=== PATIENT | male | born 1975 | race Caucasian/White ===

== ENCOUNTER 2021-06-14 03:20 | Emergency (ER) | payer SELFPAY ==
[2021-06-14] VITALS (17 sets, daily range): BP systolic 128–154; BP diastolic 89–100; PULSE 84–95; RESP 16–23; TEMP 36.6–36.7; O2SAT 96–100
--- NOTE | ~2021-06-14 | CT_ITS ---
EXAMINATION: CT soft tissue neck w con EXAM DATE: 06/14/2021 05:23 INDICATION: Throat swelling. TECHNIQUE: Spiral CT of the neck was performed following intravenous injection of 75 mL Omnipaque 350 . Axial, coronal and sagittal images were reviewed. The dose-length product (DLP) for this examinat ion was 557.80 mGy-cm. The exposure was tailored according to patient size (auto mA exposure control ), and iterative reconstruction (ASIR) was used as additional dose reduction technique. There is no prior study for comparison. FINDINGS: Pathologically enlarged left internal jugular chain, left submandibular lymphadenopathy. On e of the larger lymph nodes measures 2.1 x 1.5 cm, another 3.0 x 1.6 cm. No right-sided lymphadenopat hy. Could be lymphoma or other malignancy; histologic correlation is indicated. The thyroid gland is unremarkable. The submandibular and parotid glands are symmetric. The superior mediastinum is u nremarkable. The airway is unremarkable. Parapharyngeal and pre-glottic fat planes are preserved. The opacified vasculature is patent. The orbits are unremarkable. Mild ethmoid and bilateral m axillary sinus mucoperiosteal thickening. Lung apices clear. There is mild cervical spondylosis. IMPRESSION: Left-sided neck lymphadenopathy suspicious for lymphoma or other malignancy; histologic c orrelation indicated. Reviewed, dictated and finalized at location A. IMPRESSION: Left-sided neck lymphadenopathy suspicious for lymphoma or other ma lignancy; histologic correlation indicated.
[2021-06-14] MEDS: FAMOTIDINE 20 MG/2 ML VIAL IV PUSH (04:19)
[2021-06-14] MEDS: methylPREDNISolone SOD SUCC 125 MG VIAL IV PUSH (04:20)
[2021-06-14 04:28] LABS: Basophils Absolute Auto 0.1 K/mm3 (0.0-0.1); Basophils Percent Auto 0.8 % (0.2-1.2); Eosinophils Absolute Auto 0.2 K/mm3 (0-0.3); Eosinophils Percent Auto 2.8 % (0-4.4); Hematocrit 42.2 % (42.0-52.0); Hemoglobin 14.4 g/dL (14.0-18.0); Immature Granulocyte Absolute 0.02 K/mm3 (0.00-0.031); Immature Granulocyte Percent A 0.3 % (0-0.5); Lymphocytes Percent Auto 25.2 % (18.3-44.2); Mean Corpuscular HGB Conc 34.1 g/dl (32-36); Mean Corpuscular Hemoglobin 31.6 pg (26-34); Mean Corpuscular Volume 92.7 fl (80-100); Mean Platelet Volume 8.6 fl (7.4-10.4); Monocytes Absolute Auto 0.8 K/mm3 (0.1-0.6); Monocytes Percent Auto 11.5 % (2.6-8.5); Neutrophils Absolute Auto 4.2 K/mm3 (1.3-6.7); Neutrophils Percent Auto 59.4 % (45.5-73.1); Platelet Count Result 224 k/mm3 (150-375); Red Blood Count 4.55 M/mm3 (4.6-6.20); Red Cell Distribution Width 12.2 % (11.5-14.5); White Blood Count 7.1 K/mm3 (4.5-10.0)
[2021-06-14 04:40] LABS: Alanine Aminotransferase 83 U/L (4-50); Albumin Level 4.6 g/dL (3.5-5.1); Alkaline Phosphatase 107 U/L (38-126); Anion Gap 14 mmol/L (8-16); Aspartate Amino Transferase 70 U/L (17-59); Bilirubin,Total 0.7 mg/dL (0.2-1.3); Blood Urea Nitrogen 9 mg/dL (9-20); Calcium 9.2 mg/dL (8.4-10.2); Carbon Dioxide 23 mmol/L (22-30); Chloride 99 mmol/L (98-107); Estimated CRCL calculation 91 ml/min; Estimated Glomerular Filt Rate > 60; Glucose 101 mg/dL (65-110); Potassium 3.5 mmol/L (3.4-5.0); Sodium 136 mmol/L (137-145)
--- NOTE | 2021-06-14 05:03 | ED.GENADULT ---
HPI - General Adult General Chief complaint: Unspecified Stated complaint: throat closing up, anxiety Time Seen by Provider: 06/14/21 03:43 History of Present Illness HPI narrative: Patient 45-year-old gentleman who presents the emergency department chief complaint of a full feeling in his throat. Patient reports he has history of allergies and reports that he had a sensation feeling as though his throat was closing. Patient states he took some Benadryl which is improved somewhat the patient denies hives denies urticaria patient states that he is not had any stridor the patient also reports has been under a fair amount of stress has a family member that is upstairs in the ICU. Related Data Allergies Allergy/AdvReac Type Severity Reaction Status Date / Time No Known Allergies Allergy Verified 06/14/21 03:29 Review of Systems Review of Systems: A 10 system review of systems was completed on the patient and is negative except for what is stated in the HPI. Nursing and ancillary documentation was reviewed. Exam Narrative: GENERAL: Well-appearing, well-nourished, and in no acute distress. HEAD: Normocephalic, atraumatic. EYES: PERRLA and EOMI. ENT: Nares clear, no rhinorrhea or epistaxis. Mucous membranes moist. NECK: Supple. CHEST: Clear to auscultation. No respiratory distress. HEART: Regular rate and rhythm. No murmur heard. Normal peripheral pulses. ABDOMEN: Soft, nontender, nondistended, normal active bowel sounds. EXTREMITIES: Normal range of motion. No edema. SKIN: Warm, dry, no rash. NEURO: No focal deficits. Alert and oriented x3. PSYCH: Normal mood and affect. Course Vital Signs Vital signs: Vital Signs Temperature 36.6 C 06/14/21 03:25 Pulse Rate 95 06/14/21 03:25 Respiratory Rate 20 06/14/21 03:25 Blood Pressure 154/100 H 06/14/21 03:25 Pulse Oximetry 100 06/14/21 03:25 Temperature 36.7 C 06/14/21 07:00 Pulse Rate 89 06/14/21 07:00 Respiratory Rate 17 06/14/21 07:00 Blood Pressure 139/89 06/14/21 06:15 Pulse Oximetry 96 06/14/21 07:00 Medical Decision Making Vital Signs Vital Signs: Vital Signs Temperature 36.6 C 06/14/21 03:25 Pulse Rate 95 06/14/21 03:25 Respiratory Rate 20 06/14/21 03:25 Blood Pressure 154/100 H 06/14/21 03:25 Pulse Oximetry 100 06/14/21 03:25 Temperature 36.7 C 06/14/21 07:00 Pulse Rate 89 06/14/21 07:00 Respiratory Rate 17 06/14/21 07:00 Blood Pressure 139/89 06/14/21 06:15 Pulse Oximetry 96 06/14/21 07:00 Lab Data Result diagrams: 06/14/21 04:18 06/14/21 04:18 Labs: Lab Results 06/14/21 06/14/21 Range/Units 04:18 04:18 WBC 7.1 (4.5-10.0) K/mm3 RBC 4.55 L (4.6-6.20) M/mm3 Hgb 14.4 (14.0-18.0) g/dL Hct 42.2 (42.0-52.0) % MCV 92.7 (80-100) fl MCH 31.6 (26-34) pg MCHC 34.1 (32-36) g/dl RDW 12.2 (11.5-14.5) % Plt Count 224 (150-375) k/mm3 MPV 8.6 (7.4-10.4) fl Immature Gran % (Auto) 0.3 (0-0.5) % Neut % (Auto) 59.4 (45.5-73.1) % Lymph % (Auto) 25.2 (18.3-44.2) % Sheridan % (Auto) 11.5 H (2.6-8.5) % Eos % (Auto) 2.8 (0-4.4) % Baso % (Auto) 0.8 (0.2-1.2) % Lymph # (Auto) 1.80 (0.9-3.2) K/mm3 Sheridan # (Auto) 0.8 H (0.1-0.6) K/mm3 Eos # (Auto) 0.2 (0-0.3) K/mm3 Baso # (Auto) 0.1 (0.0-0.1) K/mm3 Abs Immat Gran (auto) 0.02 (0.00-0.031) K/mm3 Absolute Neuts (auto) 4.2 (1.3-6.7) K/mm3 Absolute Nucleated RBC 0.0 (0.0-0.012) K/mm3 Nucleated RBC % 0.0 (0.0-0.2) % Sodium 136 L (137-145) mmol/L Potassium 3.5 (3.4-5.0) mmol/L Chloride 99 (98-107) mmol/L Carbon Dioxide 23 (22-30) mmol/L Anion Gap 14 (8-16) mmol/L BUN 9 (9-20) mg/dL Creatinine 0.90 (0.7-1.3) mg/dL Estim Creat Clear Calc 91 ml/min Estimated GFR > 60 (59 - ) Glucose 101 (65-110) mg/dL Calcium 9.2 (8.4-10.2) mg/dL Total Bilirubin 0.7 (0.2-1.3) mg/dL AST 70 H (17-59) U
== END 2021-06-14 07:37 | disposition home or self-care (01) ==
PROVIDERS: Emergency Provider Emergency Medicine
DX: R59.0 Localized enlarged lymph nodes (principal)
CPT/HCPCS: 36415; 70491; 80053; 85025; 96374; 96375; 99284; J2930; Q9967

== ENCOUNTER 2021-08-31 13:11 | Outpatient (CLI) | payer SELFPAY ==
--- NOTE | ~2021-08-31 | US_ITS ---
EXAMINATION: US biopsy lymph node DATE: 08/31/2021 16:01 INDICATION: Left cervical lymphadenopathy TECHNIQUE: The procedure including the risks and benefits was discussed with the patient. Risks discu ssed included bleeding and infection. The patient understood the risks and agreed to proceed. The sk in overlying the inframandibular left neck was prepped and draped in usual sterile fashion. Anesthet ic was administered with 1% lidocaine subcutaneously. An 14 gauge core biopsy needle was advanced un katharina continuous ultrasound observation to the lesion of interest. 5 core biopsy specimens were obtain ed, 3 placed in RPMI media and 2 in formalin. The needle was removed and the entry site was cleaned and dressed. Post procedure ultrasound demonstrated no hemorrhage. FINDINGS: Ultrasound images demonstrate biopsy needle advanced into a 3.6 x 3.2 x 2.0 cm enlarged odm y hypoechoic left submandibular lymph node. IMPRESSION: 1. Successful Ultrasound-guided biopsy of a a 3.6 x 3.2 x 2.0 cm left submandibular lymph node. Reviewed, dictated and finalized at location A. ALLY IMPAIRED TEACHER IMPRESSION: 1. Successful Ultrasound-guided biopsy of a a 3.6 x 3.2 x 2.0 cm left submandib ular lymph node.
== END 2021-08-31 13:12 | disposition home or self-care (01) ==
LOC: ANHIMG 13:28
PROVIDERS: Visit Provider Otolaryngology
DX: R59.0 Localized enlarged lymph nodes (principal); C81.01 Nodular lymphocyte predominant Hodgkin lymphoma, lymph nodes of head, face, and neck
CPT/HCPCS: 38505; 76942; 88184; 88185; 88305

== ENCOUNTER 2021-10-08 07:43 | Outpatient (CLI) | payer BC, SELFPAY ==
--- NOTE | ~2021-10-08 | PE_ITS ---
EXAMINATION: PET skull to mid thigh DATE: 10/08/2021 09:25 INDICATION: Hodgkin's lymphoma TECHNIQUE: Blood glucose level was 100 mg/dL. 10.427 mCi of 18-fluorodeoxyglucose (18-FDG) was admini stered i.v. Low dose computed tomography (CT) images were acquired from the base of the brain to the proximal thighs for attenuation correction and anatomic localization. Positron emission tomography (P ET) images were acquired in the same distribution beginning 60 minutes after injection. Images includ ing fused PET/CT images were reconstructed in axial, coronal, and sagittal planes. Automated exposure control technique was employed. The dose-length product was 945.60mGy-cm. COMPARISON: None FINDINGS: Head/neck: Moderate to high increased FDG uptake associated with several enlarged left submandibular, jugular an d posterior triangle cervical lymph nodes. The most intense FDG uptake with maximal SUV of 12.1 is se en at a jugular chain lymph node measuring 1.8 x 1.9 cm in diameter at the level of the hyoid bone in one of the largest lymph nodes in the submandibular region measuring 2.9 x 1.5 cm with maximal SUV o f 6.4. The FDG avid lymph nodes all remain above the level of the cricoid cartilage. Symmetric increa sed activity in the oral cavity, palatine tonsils, parotid glands, submandibular glands, laryngeal m uscles and ocular muscles without CT correlate, likely physiologic. Chest: Mild bibasilar atelectasis. No suspicious pulmonary nodules, pneumonia, pulmonary edema or pleural ef fusion. Calcified right hilar and mediastinal lymph nodes consistent with old granulomatous disease. Heart size is normal. No pericardial or pleural effusion. No pathologically enlarged or FDG avid thor acic lymph nodes. Abdomen/pelvis/proximal thighs: Physiologic renal accumulation and excretion of FDG activity in the kidneys, bladder and along portio ns of ureters. There is diffuse relatively smooth bladder wall thickening which could be due to chron ic outlet obstruction, neurogenic bladder or cystitis either acute or chronic. Normal degree and hete rogenous pattern of increased uptake throughout the liver without radiologic correlate or dominant FD G avid lesion. The gallbladder, pancreas, spleen and bilateral adrenal glands are normal. Mild uptake scattered throughout the bowels without radiologic correlate, also likely physiologic. Normal append ix. There are several mildly enlarged periportal, portacaval and gastrohepatic lymph nodes with mild to moderately increased FDG uptake. For reference a 1.9 x 1.9 cm lymph node cephalad to the celiac ax is demonstrates a maximal SUV of 4.9. There is a larger portacaval lymph node with maximal SUV of 5.1 0 which is unable to be clearly distinguished from the adjacent vasculature to allow for accurate freya surement on noncontrast imaging. Still normal-sized but mildly prominent 1.5 x 0.8 cm aortocaval lymp h node just below the level of the renal artery and vein and with FDG uptake with maximal SUV of 3.0 isointense to the adjacent aorta and inferior vena cava. No more caudal pathologically enlarged for a bnormal FDG avid lymph nodes in the lower abdomen or pelvis. Musculoskeletal: Small focus of likely extravasated activity at the site of injection of the right antecubital fossa. No suspicious lytic, blastic or FDG avid bone lesions. IMPRESSION: 1. Enlarged and FDG avid lymphadenopathy both at the left neck and in the upper abdomen as detailed a manoj consistent with given history of Hodgkin's lymphoma. Reviewed, dictated and finalized at location B. ETING ADMINISTRATIVE ASSISTANT IMPRESSION: 1. Enlarged and FDG avid lymphadenopathy both at the left neck and in the upper abdomen as detailed above consistent with given history of Hodgkin's lymphoma.
[2021-10-08 08:01] LABS: Glucose Point of Care 100 mg/dl (65-105)
== END 2021-10-08 07:44 | disposition home or self-care (01) ==
LOC: ANHIMG 07:48
PROVIDERS: Visit Provider Internal Medicine Hematology & Oncology
DX: C81.90 Hodgkin lymphoma, unspecified, unspecified site (principal); R59.0 Localized enlarged lymph nodes
CPT/HCPCS: 78815; A9552

== ENCOUNTER 2021-10-19 06:57 | Outpatient (CLI) | payer BC, SELFPAY ==
--- NOTE | 2021-10-19 | ECHO_ITS ---
Patient Info Name: Madan Wood Age: 45 years : 1975 Gender: Male Ht: 67 in Wt: 190 lbs BSA: 2.04 m2 HR: 79 bpm BP: 145 / 89 mmHg Heart Rhythm: Sinus Rhythm Technical Quality: Good Exam Date: 10/19/2021 8:03 AM Exam Location: 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 Strain analysis performed. Summary 1. Complete two-dimensional, color flow and Doppler transthoracic echocardiogram is performed. 2. Strain analysis performed. 3. Left ventricular chamber dimension is normal. 4. Left ventricular systolic function is normal, estimated at 55-60%. 5. There is no increased left ventricular wall thickness. 6. The left ventricular diastolic function is normal. 7. Global longitudinal strain is borderline at -17 %. 8. There is mild tricuspid valve regurgitation. Left Ventricle Left ventricular chamber dimension is normal. Left ventricular systolic function is normal, estimated at 55-60%. There is no increased left ventricular wall thickness. The left ventricular diastolic function is normal. Global longitudinal strain is borderline at -17 %. Right Ventricle Right ventricular chamber dimension is normal. Right ventricular systolic function is normal. Left Atria Left atrial chamber dimension is normal. Right Atria Right atrial chamber dimension is normal. Atrial Septum Intact interatrial septum visualized by color flow imaging. Aortic Valve The aortic valve is trileaflet. There is no aortic valve sclerosis. There is no aortic valve stenosis. There is trace aortic valve regurgitation. Pulmonic Valve The pulmonic valve is normal. There is no pulmonic valve stenosis. There is trace pulmonic regurgitation. Mitral Valve The mitral valve has normal leaflets. There is no mitral valve stenosis. There is trace mitral valve regurgitation. Tricuspid Valve The tricuspid valve leaflets are normal. There is no significant tricuspid valve stenosis. There is mild tricuspid valve regurgitation. No pulmonary hypertension, estimated pulmonary arterial systolic pressure is 32 mmHg. Pericardium/Pleural The pericardium appears normal. There is no pericardial effusion. Inferior Vena Cava Normal inferior vena cava with <50% collapse upon inspiration consistent with elevated right atrial pressure, 10 mmHg. Aorta The aortic root size at the sinus of Valsalva is normal. The prox ascending aorta size is normal. The abdominal aorta size is normal. Left Ventricular Outflow Tract Name Value Normal LVOT 2D LVOT Diameter 2.0 cm LVOT Doppler LVOT Peak Gradient 5 mmHg LVOT Mean Gradient 3 mmHg LVOT VT
== END 2021-10-19 06:58 | disposition home or self-care (01) ==
PROVIDERS: Visit Provider Internal Medicine Hematology & Oncology
DX: C81.03 Nodular lymphocyte predominant Hodgkin lymphoma, intra-abdominal lymph nodes (principal); I07.1 Rheumatic tricuspid insufficiency
CPT/HCPCS: 93306

== ENCOUNTER 2022-03-16 09:21 | Outpatient (CLI) | payer BC, SELFPAY ==
--- NOTE | ~2022-03-16 | PE_ITS ---
EXAMINATION: PET skull to mid thigh DATE: 03/16/2022 10:59 INDICATION: Hodgkin's lymphoma of intra-abdominal lymph node. TECHNIQUE: Blood glucose level was 115 mg/dL. 10.252 mCi of 18-fluorodeoxyglucose (18-FDG) was admini stered i.v. Low dose computed tomography (CT) images were acquired from the base of the brain to the proximal thighs for attenuation correction and anatomic localization. Automated exposure control was employed. Dose-length product (DLP) was 690 mGy-cm. Positron emission tomography (PET) images were ac quired in the same distribution. COMPARISON: PET/CT 10/08/2021, neck CT 06/14/2021 FINDINGS: Head/neck: There is increased activity in the oral cavity, pharynx, and glottis without abnormal CT c orrelate, likely physiologic. There is a 10 x 24 mm left submandibular lymph node without increased a ctivity. Chest: There is mild atelectasis in the lungs. Calcified right hilar lymph nodes are consistent with old granulomatous disease. No pleural effusion. The heart size is normal. No pericardial effusion. Th ere are coronary artery calcifications. Abdomen/pelvis/proximal thighs: The liver, gallbladder, spleen, pancreas, adrenal glands, and kidneys are normal. There are no dilated loops of bowel. There is an 11 x 16 mm periportal lymph node withou t increased activity. There is no free intraperitoneal fluid. There is widespread increased activity in bone marrow without abnormal CT correlate, likely bone marrow stimulation. There are chronic bilat eral L5 pars defects. IMPRESSION: 1. Improved borderline enlarged left submandibular lymph node without increased activity, consistent with treated lymphoma. 2. Stable mildly enlarged periportal lymph node without increased activity, likely reactive. Reviewed, dictated and finalized at location B. IMPRESSION: 1. Improved borderline enlarged left submandibular lymph node without increased activity, consistent with treated lymphoma. 2. Stable mildly enlarged periportal lymph node without increased activity, lik renato reactive.
[2022-03-16 09:44] LABS: Glucose Point of Care 115 mg/dl (65-105)
== END 2022-03-16 09:22 | disposition home or self-care (01) ==
PROVIDERS: Visit Provider Internal Medicine Hematology & Oncology
DX: C81.03 Nodular lymphocyte predominant Hodgkin lymphoma, intra-abdominal lymph nodes (principal)
CPT/HCPCS: 78815; A9552

== ENCOUNTER 2022-09-02 07:37 | Outpatient (CLI) | payer BC, SELFPAY ==
--- NOTE | ~2022-09-02 | PE_ITS ---
EXAMINATION: PET skull to mid thigh DATE: 09/02/2022 09:26 INDICATION: Nodular lymphocyte predominant Hodgkin lymphoma. TECHNIQUE: Blood glucose level was 105 mg/dL. 10.619 mCi of 18-fluorodeoxyglucose (18-FDG) was admini stered i.v. Low dose computed tomography (CT) images were acquired from the base of the brain to the proximal thighs for attenuation correction and anatomic localization. Automated exposure control was employed. Dose-length product (DLP) was 645 mGy-cm. Positron emission tomography (PET) images were ac quired in the same distribution. COMPARISON: PET/CT 03/16/2022 FINDINGS: Head/neck: There is increased activity in the oral cavity, oropharynx, major salivary glands, and romeo ttis without abnormal CT correlate, likely physiologic. There is a 10 x 21 mm left submandibular node without increased activity. Chest: There is no pneumonia or pleural effusion. Calcified right hilar and mediastinal lymph nodes a re consistent with old granulomatous disease. The heart size is normal. No pericardial effusion. Ther e is mild bilateral gynecomastia. Abdomen/pelvis/proximal thighs: The liver and gallbladder are normal. Calcifications in the spleen ar e consistent with old granulomatous disease. The pancreas, adrenal glands, and kidneys are normal. Th ere are no dilated loops of bowel. There are no pathologically enlarged lymph nodes. There is no free intraperitoneal fluid. There are chronic bilateral L5 pars defects. IMPRESSION: 1. Stable borderline enlarged left submandibular lymph node without increased activity, consistent wi th treated lymphoma. Reviewed, dictated and finalized at location A. CANDY IMPRESSION: 1. Stable borderline enlarged left submandibular lymph node without increased a ctivity, consistent with treated lymphoma.
[2022-09-02 07:58] LABS: Glucose Point of Care 105 mg/dl (65-105)
== END 2022-09-02 07:38 | disposition home or self-care (01) ==
PROVIDERS: Referring Provider Internal Medicine Hematology & Oncology; Visit Provider Internal Medicine Hematology & Oncology
DX: C81.03 Nodular lymphocyte predominant Hodgkin lymphoma, intra-abdominal lymph nodes (principal)
CPT/HCPCS: 78815; A9552

== ENCOUNTER 2023-04-26 07:49 | Outpatient (CLI) | payer BC, SELFPAY ==
--- NOTE | ~2023-04-26 | PE_ITS ---
EXAMINATION: PET skull to mid thigh DATE: 04/26/2023 10:09 INDICATION: Hodgkin's lymphoma TECHNIQUE: 9.836 mCi of 18-fluorodeoxyglucose (18-FDG) was administered i.v. Low dose computed tomogr aphy (CT) images were acquired from the base of the brain to the proximal thighs for attenuation pilra ection and anatomic localization. Positron emission tomography (PET) images were acquired in the same distribution beginning 52 minutes after injection. Images including fused PET/CT images were reconst ructed in axial, coronal, and sagittal planes. Automated exposure control technique was employed. The dose-length product was 521.50mGy-cm. COMPARISON: 09/02/2022 FINDINGS: Head/neck: There is symmetric increased activity in the oral cavity, palatine tonsils, parotid glands, submandi bular glands, laryngeal muscles and ocular muscles without CT correlate, likely physiologic. Slight d ecrease in size of a 1.7 x 1.0 cm left submandibular lymph node without FDG uptake. No other patholog ically enlarged cervical lymphadenopathy or suspicious foci of increased FDG uptake in the visualized head or neck. Chest: No pneumonia, pulmonary edema or pleural effusion. Calcified right hilar and mediastinal lymph nodes consistent with old granulomatous disease. No pathologically enlarged or FDG avid thoracic lymphadeno shanika. Heart size is normal. No pericardial effusion. Thoracic aorta is normal in caliber. Mild bilat eral gynecomastia. Abdomen/pelvis/proximal thighs: Physiologic renal accumulation and excretion of FDG activity in the kidneys, bladder and along portio ns of ureters. Normal degree and heterogenous pattern of increased uptake throughout the liver withou t radiologic correlate or dominant FDG avid lesion. The gallbladder, pancreas, spleen and bilateral a drenal glands are normal. Mild uptake scattered throughout the bowels without radiologic correlate, a lso likely physiologic. No other abnormal foci of increased FDG uptake or pathologically enlarged lym phadenopathy in the abdomen, pelvis or proximal thighs. Musculoskeletal: Chronic bilateral L5 pars intra-articular is defects without spondylolisthesis. Mild synovial uptake at the right acromioclavicular and bilateral glenohumeral joints. No suspicious lytic, blastic or FDG avid bone lesions. IMPRESSION: 1. No FDG uptake and continued decrease in size of a previously enlarged and FDG avid left submandibu lar lymph node consistent with treated lymphoma. No pathologically enlarged or FDG avid lymphadenopat hy to suggest residual/recurrent disease. Reviewed, dictated and finalized at location A. IMPRESSION: 1. No FDG uptake and continued decrease in size of a previously enlarged and FD G avid left submandibular lymph node consistent with treated lymphoma. No patho logically enlarged or FDG avid lymphadenopathy to suggest residual/recurrent di sease.
[2023-04-26 08:17] LABS: Glucose Point of Care 97 mg/dl (65-105)
== END 2023-04-26 07:50 | disposition home or self-care (01) ==
PROVIDERS: Visit Provider Internal Medicine Hematology & Oncology
DX: C81.03 Nodular lymphocyte predominant Hodgkin lymphoma, intra-abdominal lymph nodes (principal)
CPT/HCPCS: 78815; A9552